=== PATIENT | female | born 1985 | race Caucasian/White ===

== ENCOUNTER 2022-09-26 21:20 | Emergency (ER) | payer MEDICAID ==
[2022-09-26] MEDS ORDERED: Ondansetron 4 MG/2 ML SDV IVPUSH ONE ×2 (21:57→23:08)
[2022-09-26] MEDS ORDERED: Morphine 2 MG/ML SYRINGE IVPUSH ONE ×2 (21:57→23:37)
[2022-09-26] MEDS ORDERED: Lactated Ringers 1,000 ML IV SCH (22:00)
[2022-09-26] MEDS ORDERED: Potassium Chloride 10 MEQ in Premix Bag 1 BAG IV ONE (23:19)
[2022-09-26] MEDS ORDERED: ceFAZolin 1 GM in Sodium Chloride 0.9% 50 ML IV ONE (23:34)
[2022-09-26] MEDS ORDERED: Lactated Ringers 500 ML IV ONE (23:37)
[2022-09-27] MEDS ORDERED: Metoclopramide 10 MG/2 ML SDV IVPUSH ONE ×2 (00:52→04:19)
[2022-09-27] MEDS ORDERED: diphenhydrAMINE 12.5 MG/5 ML Liquid 5 ML UD Cup PO ONE (00:55)
[2022-09-27] MEDS ORDERED: Aluminum Hydroxide/Magnesium Hydroxide/Simethicone Susp 30 ML Cup PO ONE (00:55)
[2022-09-27] MEDS ORDERED: Lidocaine 2% Viscous Solution 15 ML UD PO ONE (00:55)
[2022-09-27] MEDS ORDERED: Potassium Chloride 10 MEQ in Premix Bag 1 BAG IV ONE ×4 (01:30→06:11)
== END 2022-09-27 06:20 ==
LOC: JD.ED 21:20
DX: R04.0 Epistaxis (principal); D69.6 Thrombocytopenia, unspecified; Z91.018 Allergy to other foods; Z91.013 Allergy to seafood; Z88.0 Allergy status to penicillin
CPT/HCPCS: 36415; 80053; 85025; 85027; 85610; 85730; 86850; 86870; 86900; 86901; 86905; 96361; 96365; 96366; 96367; 96375; 96376; 99284; 99285-25; A9270-GY; J0690; J2270; J2405; J2765; J3480; J7120